=== PATIENT | female | born 1965 | race Caucasian/White ===

== ENCOUNTER 2019-11-27 16:32 | Outpatient (CLI) | payer OTHER, SELFPAY ==
--- NOTE | ~2019-11-27 | MM_ITS ---
EXAMINATION: MM screening [facility] BI w ayaz HISTORY: Screening mammogram TECHNIQUE: Craniocaudal and mediolateral oblique 3-D tomosynthesis images were obtained and synthetic 2-D images were generated. CAD analysis was submitted and interpreted. COMPARISON: 07/13/2018, 12/22/2015, 11/14/2011 BREAST PARENCHYMAL COMPOSITION: The breasts are heterogeneously dense, which may obscure small masses . FINDINGS: RIGHT BREAST: There is no evidence of suspicious mass, calcification, or architectural distortion to suggest malignancy. There has been no significant interval change. LEFT BREAST: There is a possible low-density mass in the middle third of the inner breast best apprec iated 7 cm from the nipple on the craniocaudal view. IMPRESSION: 1. Possible left breast mass. 2. Additional mammographic views and possible breast ultrasound are recommended. BI-RADS Category 0: Incomplete: Needs additional imaging evaluation. Reviewed, dictated and finalized at location A. TOR IMPRESSION: 1. Possible left breast mass. 2. Additional mammographic views and possible breast ultrasound are recommended . BI-RADS Category 0: Incomplete: Needs additional imaging evaluation.
== END 2019-11-27 16:33 | disposition home or self-care (01) ==
LOC: ANHIMG 16:38
PROVIDERS: Visit Provider Student in an Organized Health Care Education/Training Program
DX: Z12.31 Encounter for screening mammogram for malignant neoplasm of breast (principal)
CPT/HCPCS: 77063; 77067

== ENCOUNTER 2019-12-27 12:17 | Outpatient (CLI) | payer OTHER, SELFPAY ==
--- NOTE | ~2019-12-27 | MMUS_ITS ---
EXAMINATION: MM diagnostic mammo unilat LT, US breast LT limited HISTORY: Follow-up left breast asymmetry TECHNIQUE: Additional 3-D tomosynthesis images of the left breast were performed and synthetic 2-D im ages were generated. CAD analysis was submitted and interpreted. High resolution left breast ultrasou nd was performed. COMPARISON: Comparison to multiple prior studies sequentially, with oldest reviewed study dated 03/2012. FINDINGS: MAMMOGRAPHIC FINDINGS: The breasts are heterogenously dense, which may obscure small masses. There are no suspicious masses, calcifications or architectural distortion to suggest malignancy. ULTRASOUND: At 10:00, 2 cm from the nipple there is an irregular hypoechoic area without discrete mass. This is l ikely benign heterogeneous dense tissue. At 7:00, 4 cm from the nipple, there is a small hypoechoic m ass measuring 4 mm, likely benign. No internal vascularity or posterior features. IMPRESSION: 1. Probable benign findings of the left breast. 2. Recommend 6 month follow-up diagnostic left mammogram and ultrasound recommended. BI-RADS category 3, probably benign findings. Reviewed, dictated and finalized at location A. IMPRESSION: 1. Probable benign findings of the left breast. 2. Recommend 6 month follow-up diagnostic left mammogram and ultrasound recomme nded. BI-RADS category 3, probably benign findings.
== END 2019-12-27 12:18 | disposition home or self-care (01) ==
PROVIDERS: Visit Provider Student in an Organized Health Care Education/Training Program
DX: R92.8 Other abnormal and inconclusive findings on diagnostic imaging of breast (principal)
CPT/HCPCS: 76642; 77065

== ENCOUNTER 2020-03-10 11:15 | Outpatient (CLI) | payer OTHER, SELFPAY ==
--- NOTE | ~2020-03-10 | US_ITS ---
EXAMINATION: US pelvic complete w TV DATE: 03/10/2020 12:01 INDICATION: Postmenopausal bleeding Comparison:Ultrasound dated 11/30/2016 TECHNIQUE: Multiple transabdominal and endovaginal sonographic images of the pelvis performed. FINDINGS: The uterus measures 9.2 x 4.4 x 6.1 cm. There is a uterine fibroid measuring 1.4 x 1.3 x 0. 9 cm. The endometrial complex measures 5 mm. The right ovary measures 2.1 x 2 x 1.2 cm and the left ovary measures 2.8 x 1.6 x 1 cm. There are sm all follicles in each ovary. There is no free fluid in the pelvis. There are no abnormal masses seen on either side. IMPRESSION: 1. Thickened endomtrial complex. The differential diagnosis includes endometrial hyperplasia, polyp a nd carcinoma. Biopsy is recommended. 2: Small uterine fibroid measuring 1.4 cm maximum dimension. Reviewed, dictated and finalized at location A. IMPRESSION: 1. Thickened endomtrial complex. The differential diagnosis includes endometria l hyperplasia, polyp and carcinoma. Biopsy is recommended. 2: Small uterine fibroid measuring 1.4 cm maximum dimension.
== END 2020-03-10 11:16 | disposition home or self-care (01) ==
LOC: ANHIMG 11:22
PROVIDERS: Visit Provider Student in an Organized Health Care Education/Training Program
DX: N95.0 Postmenopausal bleeding (principal); R93.89 Abnormal findings on diagnostic imaging of other specified body structures; D25.9 Leiomyoma of uterus, unspecified
CPT/HCPCS: 76830; 76856

== ENCOUNTER 2020-07-17 12:51 | Outpatient (CLI) | payer OTHER, SELFPAY ==
--- NOTE | ~2020-07-17 | MMUS_ITS ---
EXAMINATION: MM diagnostic [facility] LT w ayaz, US breast LT limited HISTORY: Follow-up left breast mass TECHNIQUE: Additional 3-D tomosynthesis images of the left breast were performed and synthetic 2-D im ages were generated. CAD analysis was submitted and interpreted. High resolution targeted left breast ultrasound was performed. COMPARISON: Comparison to multiple prior studies sequentially, with oldest reviewed study dated 03/2012. BREAST PARENCHYMAL COMPOSITION: Breast composed of scattered areas of fibroglandular density. FINDINGS: MAMMOGRAPHIC FINDINGS: There are no suspicious masses, calcifications or architectural distortion in the left breast to sugg est malignancy. ULTRASOUND: Limited left breast ultrasound: Normal heterogeneous echotexture without focal mass. IMPRESSION: 1. No evidence for malignancy in the left breast. 2. Routine yearly screening mammogram and regular clinical breast examination are recommended. BI-RADS Category 1: Negative Reviewed, dictated and finalized at location A. IMPRESSION: 1. No evidence for malignancy in the left breast. 2. Routine yearly screening mammogram and regular clinical breast examination a re recommended. BI-RADS Category 1: Negative
== END 2020-07-17 12:52 | disposition home or self-care (01) ==
PROVIDERS: Visit Provider Student in an Organized Health Care Education/Training Program
DX: R92.8 Other abnormal and inconclusive findings on diagnostic imaging of breast (principal)
CPT/HCPCS: 76642; 77061; 77065; G0279

== ENCOUNTER 2021-08-25 16:15 | Outpatient (CLI) | payer OTHER, SELFPAY ==
--- NOTE | ~2021-08-25 | MM_ITS ---
EXAMINATION: MM screening [facility] BI w ayaz HISTORY: Screening mammogram TECHNIQUE: Craniocaudal and mediolateral oblique 3-D tomosynthesis images were obtained and synthetic 2-D images were generated. CAD analysis was submitted and interpreted. COMPARISON: 07/17/2020, 12/27/2019, 11/27/2019, 07/13/2018 BREAST PARENCHYMAL COMPOSITION: The breasts are heterogeneously dense, which may obscure small masses . FINDINGS: There is no evidence of suspicious mass, calcification, or architectural distortion to sugg est malignancy in either breast. There has been no suspicious interval change. IMPRESSION: 1. No mammographic evidence of malignancy. 2. Recommend routine screening mammography in one year. BI-RADS Category 1: Negative Reviewed, dictated and finalized at location A. US TAKER
== END 2021-08-25 16:16 | disposition home or self-care (01) ==
LOC: ANHIMG 16:17
PROVIDERS: Visit Provider Student in an Organized Health Care Education/Training Program
DX: Z12.31 Encounter for screening mammogram for malignant neoplasm of breast (principal)
CPT/HCPCS: 77063; 77067

== ENCOUNTER 2022-11-25 08:48 | Outpatient (CLI) | payer OTHER, SELFPAY ==
--- NOTE | ~2022-11-25 | MM_ITS ---
EXAMINATION: MM screening [facility] BI w ayaz HISTORY: Screening mammogram TECHNIQUE: Craniocaudal and mediolateral oblique 3-D tomosynthesis images were obtained and synthetic 2-D images were generated bilateral rotated lateral CC views.. CAD analysis was submitted and interp reted. COMPARISON: 08/25/2021 bilateral screening mammogram 07/17/2020 diagnostic left mammogram and limited left breast ultrasound examination 12/27/2019 diagnostic left mammogram and limited left breast ultrasound bilateral screening mammogram BREAST PARENCHYMAL COMPOSITION: The breasts are heterogeneously dense, which may obscure small masses . FINDINGS: There is no evidence of suspicious mass, calcification, or architectural distortion to sugg est malignancy in either breast. There has been no suspicious interval change. IMPRESSION: 1. No mammographic evidence of malignancy. 2. Recommend routine screening mammography in one year. BI-RADS Category 1: Negative Reviewed, dictated and finalized at location A. [employer]
== END 2022-11-25 08:49 | disposition home or self-care (01) ==
LOC: ANHIMG 08:49
PROVIDERS: Visit Provider Student in an Organized Health Care Education/Training Program
DX: Z12.31 Encounter for screening mammogram for malignant neoplasm of breast (principal)
CPT/HCPCS: 77063; 77067

== ENCOUNTER 2024-01-02 14:41 | Outpatient (CLI) | payer OTHER, SELFPAY ==
--- NOTE | ~2024-01-02 | MM_ITS ---
EXAMINATION: MM screening [facility] BI w ayaz HISTORY: Screening mammogram TECHNIQUE: Craniocaudal, rotated lateral craniocaudal and mediolateral oblique 3-D tomosynthesis imag es were obtained and synthetic 2-D images were generated.. CAD analysis was submitted and interpreted . COMPARISON: November 25, 2022, August 25, 2021 by lateral screening mammogram examinations BREAST PARENCHYMAL COMPOSITION: The breasts are heterogeneously dense, which may obscure small masses . FINDINGS: There is no evidence of suspicious mass, calcification, or architectural distortion to sugg est malignancy in either breast. There has been no suspicious interval change. IMPRESSION: 1. No mammographic evidence of malignancy. 2. Recommend routine screening mammography in one year. BI-RADS Category 1: Negative Reviewed, dictated and finalized at location A.
== END 2024-01-02 14:42 | disposition home or self-care (01) ==
PROVIDERS: Visit Provider Obstetrics & Gynecology
DX: Z12.31 Encounter for screening mammogram for malignant neoplasm of breast (principal)
CPT/HCPCS: 77063; 77067

== ENCOUNTER 2025-02-12 15:26 | Outpatient (CLI) | payer OTHER, SELFPAY ==
--- NOTE | ~2025-02-12 | MM_ITS ---
EXAMINATION: MM screening aliya BI w ayaz HISTORY: Screening TECHNIQUE: Craniocaudal and mediolateral oblique 3-D tomosynthesis images were obtained and synthetic 2-D images were generated. CAD analysis was submitted and interpreted. COMPARISON: Comparison to multiple prior studies sequentially, with oldest reviewed study dated 11/27. BREAST PARENCHYMAL COMPOSITION: Dense: The breasts are heterogeneously dense, which may obscure small masses FINDINGS: There is no evidence of suspicious mass, calcification, or architectural distortion to sugg est malignancy in either breast. There has been no suspicious interval change. IMPRESSION: 1. No mammographic evidence of malignancy. 2. Recommend routine screening mammography in one year. BI-RADS Category 1: Negative Reviewed, dictated and finalized at location A.
--- OUTSIDE RECORDS SUMMARY | 2025-02-12 15:30 | XMS_ITS | Referral Summary ---
Author Organization [facility] Address [address] [place] [address] Care Team Providers Care Sensory Scientist Name Role Phone Josef Chavez MD Primary Care Provider Encounters Date Type Department Care Team Description 01/09/2025 Telephone [facility] Gastroenterology [address] [place] [address] 12th [place] [address] [place] [address] Natalie Cheung GI Pre-Procedure Assessment 11/28/2024 Telephone [facility] Specialty Services [address] [place] [address] Dania Pino, TIMUR 11/20/2024 10:20 AM [facility] [address] [phone] 11/20/2024 9:40 AM [employer] Office Visit [address] [phone] Josef Chavez MD Encounter for wellness examination in adult (Primary Dx); Anxiety disorder, unspecified type; Colon cancer screening from Last 3 Months Allergies Active Allergy Reactions Criticality Noted Date Comments Erythromycin Vomiting,Nausea only Low Reaction: Vomiting, House Dust Mold Pollen Extracts Unknown Medications biotin 1 mg tablet Active calcium carbonate-vitami n D3 (CALCIUM 500 + D) 1,250mg (500mg elemental) - 200 units per tablet Act deepak fluticasone (FLONASE) 50 mcg/actuation nasal spray USE 1 SPRAY NASALLY TWICE DAILY 4 Active magnesium oxide (MAG-OX) 400 mg (241.3 mg elemental magnesium) tabletIndication s:hypomagnesemia Act deepak multivitamin tabletIndication s:Vitamin Deficiency Prevention Active cyanocobalamin (Vitamin B-12) 100 mcg tabletIndication s:Prevention of Vitamin B12 Deficiency Active zinc gluconate-zinc picolinate 30 mg capsule Active varicella-zoster gE-AS01B, PF, (SHINGRIX, PF,) 50 mcg/0.5 mL vaccine Pharmacy to inject 0.5 ml IM at 0,3 months. 1 each 1 9 Active estradioL (VIVELLE-DOT) 0.05 mg/24 hr 0 Active albuterol HFA (Ventolin HFA) 90 mcg/actuation inhaler Inhale 2 puffs every 6 (six) hours as needed for wheezing or shortness of breath 18 g 5 0 Active progesterone (PROMETRIUM) 200 mg capsule Take 1 capsule (200 mg total) by mouth daily 3 Active metroNIDAZOLE (METROGEL) 1 % gelIndications:A cne Rosacea Apply topically daily 45 g 3 4 Active fluocinonide (LIDEX) 0.05 % external solutionIndicati ons:Seborrheic dermatitis Apply topically 2 (two) times a day as needed for irritation or rash On scalp. 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 Good response so far. Resolved Problems Problem Noted Date Diagnosed Date Resolved Date Cough 08/10/2015 12/26/2018 Overview (01/19/2018): Impression: RML infiltrate on cxr. Medrol, augmentin. Immunizations Immunization Administration Dates Next Due COVID-19 mRNA (ahoyDoc) 0.3 m L (30 mcg) vaccine (12 years and up) 07/25/2024 Hep A, Adult 05/03/2021 Hep A, Unspecified 10/09/2011 Hep B Vaccine 10/08/2199 Influenza, Quadrivalent, Nemo l Culture-based MDCK, Preservative Free, Antibiotic Free, Intramuscular 08/07/2023,07/18/2022 Influenza, Quadrivalent, Spl it, Preservative Free, Intramuscular 07/19/2021,08/02/2020,07/25/2019,08/01 Influenza, Trivalent, Preser vative Free, Intramuscular 07/25/2024,07/31/2017 Influenza, Trivalent, Split, Preservative Free, Intradermal 08/16/2016 Moderna SARS-CoV-2 Monovalen t Vaccination (12+ YRS) 11/27/2020,10/29/2020 Tdap 05/20/2022,05/09/2012 ZOSTER Recombinant 08/15/2020,05/22/2020 Social History Tobacco Use Types Packs/Day Years Used Date Smoking Tobacco: Never Smokeless Tobacco: Never Tobacco Cessation:Counseling Given: Not Answered Alcohol Use Standard Drinks/Week Comments Yes 2 (1 standard drink = 0.6 oz pur e alcohol) AUDIT-C Answer Date Recorded Q1: How often do you have a drink containing alc ohol? 2-3 times a week 11/20/2024 Q2: How many drinks containi ng alcohol do you have on a typical day when you are drinking? 1 or 2 11/20/2024 Frequency of Binge Drinking Not on file 11/09 Comments Unknown Sex and Gender Information Value Date Recorded Sex Assigned at Not on file Legal Sex Female 2:45 PM [employer] [employer] Gender Identity Female 08/08/2018 1:58 PM CDT Sexual Orientation Straight 04/26/2021 8: 31 AM CDT Occupation Industry Job Start Date Job End Date [employer] retired Not on file Not on file Not on file Last Filed Vital Signs Vital Sign Reading Time Taken Comments Blood Pressure 106/74 11/20/2024 9:27 AM [employer] Pulse 89 11/20/2024 9:27 AM [employer] Temperature 36.4 C (97.5 F) 11/20/2024 9:27 AM [employer] Respiratory Rate 16 08/08/2018 2:08 PM CDT Oxygen Saturation 97% 10/16/2023 10:01 AM [employer] Inhaled Oxygen Concentration - - Weight 73.9 kg (163 lb) 11/20/2024 9:27 AM [employer] Height 167.6 cm (5' 5.98 ) 11/20/2024 9:27 AM CS T Body Mass Index 26.32 11/20/2024 9:27 AM [employer] Plan of Treatment Upcoming Encounters Date Type Department Care Team (Late st Contact Info) Description 02/27/2025 11:30 AM CDT Hospital Encounter [facility] [address] [address] Mona Brewer MD [address] [place] [id number] 02/27/2025 11:30 AM CDT - 02/27/2025 12:15 PM CDT Surgery [facility] [place] [id number] [address] Mona Brewer MD [address] [place] [id number] COLONOSCOPY Scheduled Procedures Name Priority Associated Diagnoses Date/Ti me COLONOSCOPY Screening for colorectal cancer 02/27/2025 11:30 AM CDT COLONOSCOPY Open Access Colon cancer screening Procedures Procedure Name Priority Date/Time Associated Diagnosis Comments HEMOGLOBIN A1C Routine 11/20/2024 10:09 AM [employer] Encounter for wellness examination in adult LIPID PANEL Routine 11/20/2024 10:09 AM [employer] Encounter for wellness examination in adult COMPREHENSIVE METABOLIC PANEL Routine 11/20/2024 10:09 AM [employer] Encounter for wellness examination in adult CBC WITH AUTO DIFFERENTIAL Routine 11/20/2024 10:09 AM [employer] Encounter for wellness examination in adult HEPATITIS C ANTIBODY Routine 10/16/2023 10:28 AM [employer] Encounter for wellness examination in adult COLONOSCOPY REPORT 09/26/2014 from Last 3 Months or Most Recently Relevant to Health Maintenance Results * CBC with auto differential (11/20/2024 10:09 AM [employer]) WBC 6.0 3.5 - 10.0 K/uL [facility] RBC 4.49 3.50 - 5.50 M/uL [facility] Hemoglobin 14.6 11.5 - 16.5 g/dL [facility] Hematocrit 41.3 35.0 - 55.0 % [facility] MCV 91.8 75.0 - 100.0 fL [facility] MCH 32.60 25.00 - 35.00 pg [facility] MCHC 35.50 31.00 - 38.00 g/dL [facility] RDW 12.6 11.0 - 16.0 % [facility] Platelets 293 140 - 400 K/uL [facility] MPV 9.4 8.0 - 11.0 fL [facility] Granulocyte, Absolute 3.6 1.2 - 8.0 K/uL [facility] Lymphocyte, Absolute 1.9 0.5 - 5.0 K/uL [facility] Monocyte, Absolute 0.5 0.1 - 1.5 K/uL [facility] Granulocyte, Percentage 60.6 35.0 - 80.0 % [facility] Lymphocyte, Percentage 31.7 15.0 - 50.0 % [facility] Monocyte, Percentage 7.7 2.0 - 15.0 % [facility] Blood 11/20/2024 10:0 9 AM [employer] 11/20/2024 10:17 AM [employer] Josef Chavez MD LAB BLOOD ORDERABLES F inal Result Performing Organization Address [facility] Co de Phone Number [facility] [address] [place] [address] * Hemoglobin A1c (11/20/2024 10:09 AM [employer]) HBA1C 5.5 5.0 - 6.3 % [facility] Comment: Interpretive Comment: Normal: 4.5 - 5.6 Pre-Diabetes: 5.7 - 6.4 Diabetes is: 6.5 Ranges based on ADA Guidelines Blood 11/20/2024 10:0 9 AM [employer] 11/20/2024 10:17 AM [employer] Result [facility] Josef Chavez MD LAB BLOOD ORDERABLES F inal Result Performing Organization Address [facility] Co de Phone Number [address] [address] * (ABNORMAL) Lipid panel (11/20/2024 10:09 AM [employer]) Triglyceride 167(H) 0 - 150 mg/dL [facility] Cholesterol 186 0 - 200 mg/dL [facility] HDL 47 >45 mg/dL [facility] LDL-Calculated 106 mg/dL [facility] CHOL/HDL Risk Ratio 4 Ratio [facility] LDL/HDL Risk Ratio 2 Ratio [facility] Blood 11/20/2024 10:0 9 AM [employer] 11/20/2024 10:17 AM [employer] Result [facility] Josef Chavez MD LAB BLOOD ORDERABLES F inal Result Performing Organization Address [facility]/ZIP Co de Phone Number [facility] [address] [place] [address] * (ABNORMAL) Comprehensive metabolic panel (11/20/2024 10:09 AM [employer]) Glucose 95 74 - 200 mg/dL [facility] BUN 16(L) 18 - 23 mg/dL [facility] Creatinine 0.9 0.7 - 1.3 mg/dL [facility] eGFR 67 mL/min/1.7 3m2 [facility] BUN/Creat Ratio 18 Ratio [facility] Bilirubin, Total 0.3 0.0 - 1.2 mg/dL [facility] AST (SGOT) 19 0 - 32 U/L [facility] ALT (SGPT) 22 10 - 35 U/L [facility] Alkaline phosphatase 96 35 - 104 U/L [facility] Calcium 9.8 8.8 - 10.2 mg/dL [facility] Sodium 137 135 - 145 mEq/L [facility] Potassium 4.6 3.5 - 5.1 mEq/L [facility] Chloride 101 98 - 107 mEq/L [facility] CO2 24.6 22.0 - 32.0 mEq/L [facility] Anion Gap 11 3 - 12 mEq/L [facility] Total Protein 6.8 6.0 - 8.1 g/dL [facility] Albumin 4.3 3.5 - 5.2 g/dL [facility] Globulin 2.5 g/dL [facility] Albumin/Globulin 1.7 Ratio [facility] Blood 11/20/2024 10:0 9 AM [employer] 11/20/2024 10:17 AM [employer] Josef Chavez MD LAB BLOOD ORDERABLES F inal Result Performing Organization Address [facility] Co de Phone Number [facility] [address] [place] [address] * Hepatitis C antibody Blood (10/16/2023 10:28 AM [employer]) A-HCV II 0.07 Negative <0.90 [facility] Comment: <=0.9 negative 0.9-<1.0 borderline >= 1 positive Blood 10/16/2023 10:2 8 AM [employer] 10/16/2023 10:38 AM [employer] Josef Chavez MD LAB MICROBIOLOGY - GEN ERAL ORDERABLES Final Result Performing Organization Address [facility] Co de Phone Number [facility] [address] [place] [address] * COLONOSCOPY REPORT (09/26/2014) Anatomical Region Laterality Modality Other Narrative 09/26/2014 Ordered by an unspecified provider. us Historical Provider MD ZHAO PROCEDURE ORDERABLES F inal Result from Last 3 Months or Most Recently Relevant to Health Maintenance Insurance [facility] [employer]ET[employer] [facility] Care Teams Sensory Scientist Relationship Specialty Start Date End Date Josef Chavez MD [address] [place] [address] PCP - General 03/14/17
--- OUTSIDE RECORDS SUMMARY | 2025-02-12 15:30 | XMS_ITS | Clinical Summary ---
Author Organization [facility] Address [address] [place] [address] Care Team Providers Care Drafter Seismograph Name Role Phone Josef Chavez MD Primary Care Provider Allergies Active Allergy Reactions Criticality Noted Date [...] Impression: RML infiltrate on cxr. Medrol, augmentin. Encounters Date Type Department Care Team Description 01/09/2025 Telephone [facility] Gastroenterology [facility] 12th [place] [address] [place] [address] Natalie Cheung Pre-Procedure Assessment 11/28/2024 Telephone [facility] Specialty Services [address] [place] [address] Dania Pino RN 11/20/2024 10:20 AM LUBRICATION WORKER [facility] [address] [phone] 11/20/2024 9:40 AM LUBRICATION WORKER Office Visit [address] [phone] Josef Chavez MD Encounter for wellness examination in adult (Primary Dx); Anxiety disorder, unspecified type; Colon cancer screening from Last 3 Months Immunizations Immunization Administration Dates Next Due COVID-19 mRNA (Nextly) 0.3 m L (30 mcg) vaccine (12 [...] YRS) 11/27/2020,10/29/2020 Tdap 05/20/2022,05/09/2012 ZOSTER Recombinant 08/15/2020,05/22/2020 Surgical History Surgery Date Site/Laterality Comments AR DELIVERY ONLY x2 BUNIONECTOMY Left NASAL SINUS SURGERY Medical History Medical History Date Comments Allergy status to unspecifie d drugs, medicaments and biological substances status History of seasonal allergie s - (Added by TW Conv) Personal history of other di seases of the respiratory system History of asthma - (Added b y TW Conv) Anxiety disorder Anxiety - (Adde d by TW Conv) Chronic sinusitis Recurrent sinu s infections - (Added by TW Conv) Family History Medical History Relation Name Comments Coronary artery disease Father at 70 Hypertension Father Diabetes Mother ESKD Requiring Dialysis Mother at 70 Hypertension Mother Asthma Sister Relation Name Status Comments Father Mother Sister Social History Tobacco Use Types Packs/Day Years [...] on file Legal Sex Female 2:45 PM LUBRICATION WORKER Gender Identity Female 08/08/2018 1:58 PM CDT Sexual Orientation Straight 04/26/2021 8: 31 AM CDT Occupation Industry Job Start Date Job End Date [employer] retired Not on file Not on file Not on file Obstetrics History Last Filed Vital Signs Vital Sign Reading Time Taken Comments Blood Pressure 106/74 11/20/2024 9:27 AM LUBRICATION WORKER Pulse 89 11/20/2024 9:27 AM LUBRICATION WORKER Temperature 36.4 C (97.5 F) 11/20/2024 9:27 AM LUBRICATION WORKER Respiratory Rate 16 08/08/2018 2:08 PM CDT Oxygen Saturation 97% 10/16/2023 10:01 AM LUBRICATION WORKER Inhaled Oxygen Concentration - - Weight 73.9 kg (163 lb) 11/20/2024 9:27 AM LUBRICATION WORKER Height 167.6 cm (5' 5.98 ) 11/20/2024 9:27 AM CS T Body Mass Index 26.32 11/20/2024 9:27 AM LUBRICATION WORKER Plan of Treatment Upcoming Encounters Date Type Department Care Team (Late st Contact Info) Description 02/27/2025 11:30 AM CDT Hospital Encounter [facility] [address] [place] [id number] [facility] Brewer MD [facility] [address] [place] [address] 02/27/2025 11:30 AM CDT - 02/27/2025 12:15 PM CDT Surgery [facility] [address] [place] [address], [place] [address] Mona Brewer MD 1 [facility] [address] [place] [address] COLONOSCOPY Scheduled Procedures Name Priority Associated Diagnoses Date/Ti me COLONOSCOPY Screening for colorectal cancer 02/27/2025 11:30 AM CDT COLONOSCOPY Open Access Colon cancer screening Health Maintenance Due Date Last Done Comments Breast Cancer Screening-Mammogram 1965 Cervical Cancer Screening 1965 Depression Screening 1965 Colon Cancer Screening-Colonoscopy 09/26/2024 09/26/2014 Regular Well Visit/Exam 18-64 11/20/2025 11/20/2024, 10/16/2023, 05/20/2022, Additional history exists DTaP/Tdap/Td Vaccine (3 - Td or Tdap) 05/20/2032 05/20/2022, 05/09/2012 Hepatitis B Screening Completed 10/08/2199 Colon Cancer Screening-CT Colonography Discontinued 09/26/2014 Colon Cancer Screening-DNA Stool Discontinued 09/26/2014 Colon Cancer Screening-FIT Discontinued 09/26/2014 Colon Cancer Screening-Sigmoidoscopy Discontinued 09/26/2014 Zoster Vaccine Completed 08/15/2020, 05/22/2020 Hepatitis C Screening Completed 10/16/2023 Covid-19 Vaccine Completed 07/25/2024, 06/2023, 07/21/2022, Additional history exists Influenza Vaccine Completed 07/25/2024, , 07/18/2022, Additional history exists Pneumococcal vaccine <65 Aged Out No longer eligible based on patient's age to complete this topic Procedures Procedure Name Priority Date/Time Associated Diagnosis Comments HEMOGLOBIN A1C Routine 11/20/2024 10:09 AM LUBRICATION WORKER Encounter for wellness examination in adult LIPID PANEL Routine 11/20/2024 10:09 AM LUBRICATION WORKER Encounter for wellness examination in adult COMPREHENSIVE METABOLIC PANEL Routine 11/20/2024 10:09 AM LUBRICATION WORKER Encounter for wellness examination in adult CBC WITH AUTO DIFFERENTIAL Routine 11/20/2024 10:09 AM LUBRICATION WORKER Encounter for wellness examination in adult HEPATITIS C ANTIBODY Routine 10/16/2023 10:28 AM LUBRICATION WORKER Encounter for wellness examination in adult COLONOSCOPY REPORT 09/26/2014 from Last 3 Months or Most Recently Relevant to Health Maintenance Results * CBC with auto differential (11/20/2024 10:09 AM LUBRICATION WORKER) WBC 6.0 3.5 - 10.0 K/uL [facility] Blood 11/20/2024 10:0 9 AM LUBRICATION WORKER 11/20/2024 10:17 AM LUBRICATION WORKER us Josef Chavez MD LAB BLOOD ORDERABLES F inal Result [facility] [address] [place] [address] * Hemoglobin A1c (11/20/2024 10:09 AM LUBRICATION WORKER) HBA1C 5.5 5.0 - 6.3 % [facility] Comment: Interpretive Comment: Normal: 4.5 - 5.6 Pre-Diabetes: 5.7 - 6.4 Diabetes is: 6.5 Ranges based on ADA Guidelines Blood 11/20/2024 10:0 9 AM LUBRICATION WORKER 11/20/2024 10:17 AM LUBRICATION WORKER Josef Chavez MD LAB BLOOD ORDERABLES F inal Result Performing Organization Address [facility] de Phone Number [facility] [address] [place] [address] * (ABNORMAL) Lipid panel (11/20/2024 10:09 AM LUBRICATION WORKER) Pathologist [facility] Triglyceride 167(H) 0 - 150 mg/dL [facility] Cholesterol 186 0 - 200 mg/dL [facility] HDL 47 >45 mg/dL [facility] LDL-Calculated 106 mg/dL [facility] CHOL/HDL Risk Ratio 4 Ratio [facility] LDL/HDL Risk Ratio 2 Ratio [facility] Blood 11/20/2024 10:0 9 AM LUBRICATION WORKER 11/20/2024 10:17 AM LUBRICATION WORKER Josef Chavez MD LAB BLOOD ORDERABLES F inal Result Performing Organization Address [facility] de Phone Number [address] [address] * (ABNORMAL) Comprehensive metabolic panel (11/20/2024 10:09 AM LUBRICATION WORKER) Pathologist [facility] Glucose 95 74 - 200 mg/dL [facility] BUN 16(L) 18 - 23 mg/dL [facility] Creatinine 0.9 0.7 - 1.3 mg/dL [facility] eGFR 67 mL/min/1.7 3m2 [facility] BUN/Creat Ratio 18 Ratio [facility] Bilirubin, Total 0.3 0.0 - 1.2 mg/dL [facility] AST (SGOT) 19 0 - 32 U/L [facility] ALT (SGPT) 22 10 - 35 U/L [facility] Alkaline phosphatase 96 35 - 104 U/L [facility] Calcium 9.8 8.8 - 10.2 mg/dL [facility] Sodium 137 135 - 145 mEq/L [facility] Potassium 4.6 3.5 - 5.1 mEq/L [facility] Chloride 101 98 - 107 mEq/L [facility] CO2 24.6 22.0 - 32.0 mEq/L [facility] Anion Gap 11 3 - 12 mEq/L [facility] Total Protein 6.8 6.0 - 8.1 g/dL [facility] Albumin 4.3 3.5 - 5.2 g/dL [facility] Globulin 2.5 g/dL [facility] Albumin/Globulin 1.7 Ratio [facility] Blood 11/20/2024 10:0 9 AM LUBRICATION WORKER 11/20/2024 10:17 AM LUBRICATION WORKER Josef Chavez MD LAB BLOOD ORDERABLES F inal Result Performing Organization Address [facility] de Phone Number [facility] [address] [place] [address] * Hepatitis C antibody Blood (10/16/2023 10:28 AM LUBRICATION WORKER) A-HCV II 0.07 Negative <0.90 [facility] Comment: <=0.9 negative 0.9-<1.0 borderline >= 1 positive Blood 10/16/2023 10:2 8 AM LUBRICATION WORKER 10/16/2023 10:38 AM LUBRICATION WORKER Josef Chavez MD LAB MICROBIOLOGY - GEN ERAL ORDERABLES Final Result Performing Organization Address [facility] de Phone Number [facility] [address] [place] [address] * COLONOSCOPY REPORT (09/26/2014) Anatomical Region Laterality Modality Other Narrative 09/26/2014 Ordered by an unspecified provider. Historical Provider GI PROCEDURE ORDERABLES F inal Result from Last 3 Months or Most Recently Relevant to Health Maintenance Insurance [id number] [place] [address] Care Teams Drafter Seismograph Relationship Specialty Start Date End Date Josef Chavez MD [address] [place] [address] PCP - General 03/14/17
== END 2025-02-12 15:27 | disposition home or self-care (01) ==
LOC: ANHIMG 15:27
PROVIDERS: Visit Provider Obstetrics & Gynecology
DX: Z12.31 Encounter for screening mammogram for malignant neoplasm of breast (principal)
CPT/HCPCS: 77063; 77067

== ENCOUNTER 2025-09-18 07:49 | Outpatient (CLI) | payer OTHER, SELFPAY ==
--- NOTE | ~2025-09-18 | DEXA_ITS ---
Bone Density Report Name: FREDERIC STEPHENS Age: 60 Sex: Female Ethnicity: White Date of : 1965 Indication: postmenopausal; screening for osteoporosis; height loss; asthma or emphysema; Referring Provider: GEOFFREY CROWE Study: Bone densitometry was performed. Exam Date: September 18, 2025 Accession number: [id number] Bone Density: Region BMD T-score Z-score Classification AP Spine(L1, L2) 1.014 0.3 1.7 Normal Femoral Neck (Left) 0.728 -1.1 0.2 Osteopenia Total Hip (Left) 0.886 -0.5 0.5 Normal Femoral Neck (Right) 0.755 -0.8 0.5 Normal Total Hip (Right) 0.902 -0.3 0.7 Normal Total Hip Mean 0.894 -0.4 0.6 Normal World Health Organization criteria for BMD impression classify patients as: Normal (T-score at or above -1.0), Osteopenia (T-score between -1.0 and -2.5), or Osteoporosis (T-score at or below -2.5). 10-year Fracture Risk(1): Major Osteoporotic Fracture 7.4% Hip Fracture 0.5% Reported Risk Factors: [place] (), Neck BMD=0.728, BMI=28.0 (1) FRAX(R) Version 3.08. Fracture probability calculated for an untreated patient. Fracture probability may be lower if the patient has received treatment. Clinical Information Provided by Patient: Has used the following medications: Vitamin D, Calcium Has the following medical conditions: Asthma or Emphysema Patient maximum height was 66.5 Menopause Age: 47 Onset of menses at age 12 Number of children 2 Impression: The patient has low bone mass, based on the Left Femoral Neck T-score. The patient has an estimated ten-year risk of hip fracture of 0.5% and an estimated ten-year risk of major fracture of 7.4%, based on the WHO FRAX algorithm. Discussion: BONE DENSITY IS LOW AT ONE OR MORE SKELETAL SITES. This patient's lowest T-score is low at one or more skeletal sites. It meets the World Health Organization's (WHO) criteria for ?low bone mass? (T-score between -1.0 and -2.5). The patient's 10-year risk of fracture as calculated by FRAX is less than the threshold where pharmacological therapy is recommended by the National Osteoporosis Foundation (NOF). However, all treatment decisions require clinical judgment and consideration of individual patient factors, including patient preferences, comorbidities, previous drug use, risk factors not captured in the FRAX model (e.g., frailty, falls, vitamin D deficiency, increased bone turnover, interval significant decline in bone density) and possible under or overestimation of fracture risk by FRAX. The patient should follow a healthful lifestyle (good nutrition with adequate calcium and vitamin D, and appropriate weight-bearing exercise). Follow-Up: Consider repeating this study in 2 to 3 years to reassess this patient's status, or sooner if there is some new clinical indication. Reported by: CANDIE on 09/19/2025 8:22:00 AM. Reviewed, dictated and finalized at location A.
== END 2025-09-18 07:50 | disposition home or self-care (01) ==
LOC: ANHFOHIMG 07:52
PROVIDERS: PCP Internal Medicine; Visit Provider Obstetrics & Gynecology
DX: M85.88 Other specified disorders of bone density and structure, other site (principal); Z78.0 Asymptomatic menopausal state; Z13.820 Encounter for screening for osteoporosis
CPT/HCPCS: 77080